=== PATIENT | male | born 1940 ===

== ENCOUNTER 2022-10-01 22:02 | Emergency (ER) | payer MEDICARE ==
[2022-10-01 22:36] VITALS: BP 125/66
[2022-10-01 22:45] VITALS: BP 120/67
[2022-10-01] MEDS ORDERED: ASPIRIN325 MG PO (22:48)
[2022-10-01] MEDS ORDERED: ATORVASTATIN CA40 MG PO (22:48)
[2022-10-01] MEDS ORDERED: MOISTURIZING (22:48)
[2022-10-01] MEDS ORDERED: CLEOCIN300 MG PO (22:49)
[2022-10-01] MEDS ORDERED: MORPHINE SUL15 M2 PO (22:50)
[2022-10-01] MEDS ORDERED: VIGAMOX OD (22:51)
[2022-10-01] MEDS ORDERED: OXYCODONE5 M1 PO (22:51)
[2022-10-01] MEDS ORDERED: TAMSULOSIN0.4 MG PO (22:52)
[2022-10-01] MEDS ORDERED: PRESERVISION AREDS 2 (22:53)
[2022-10-01 23:01] VITALS: BP 121/75
[2022-10-01 23:16] VITALS: BP 109/69
[2022-10-01 23:30] VITALS: BP 115/63
[2022-10-01 23:52] VITALS: BP 115/63
== END 2022-10-01 23:56 | disposition left against medical advice (07) ==
LOC: ED 22:02
DX: R06.6 Hiccough (principal); E78.00 Pure hypercholesterolemia, unspecified; F17.200 Nicotine dependence, unspecified, uncomplicated; Z53.29 Procedure and treatment not carried out because of patient's decision for other reasons; Z98.890 Other specified postprocedural states; R06.02 Shortness of breath

== ENCOUNTER 2023-06-16 07:19 | Emergency (ER) | payer MEDICARE ==
[~2023-06-16] VITALS: Ht 175.3 cm; Wt 66.0 kg
[2023-06-16] VITALS (19 sets, daily range): BP systolic 93–126; BP diastolic 63–98
[~2023-06-16 07:19] MED LIST: ASPIRIN325 MG PO; ATORVASTATIN CA40 MG PO; CLEOCIN300 MG PO; MOISTURIZING; MORPHINE SUL15 M2 PO; OXYCODONE5 M1 PO; PRESERVISION AREDS 2; TAMSULOSIN0.4 MG PO; VIGAMOX OD
[2023-06-16] MEDS ORDERED: LYRICA75 MG PO (07:36)
[2023-06-16] MEDS ORDERED: REFRESH TEARS0.5 % OP (07:38)
[2023-06-16] MEDS ORDERED: ALEVE220 M1 PO (07:39)
== END 2023-06-16 13:27 | disposition home or self-care (01) ==
LOC: ED 07:19
PROC: 2W38X1Z Immobilization of Right Upper Extremity using Splint (ICD-10-PCS; principal; 2023-06-16)
DX: S42.401A Unspecified fracture of lower end of right humerus, initial encounter for closed fracture (principal); F17.210 Nicotine dependence, cigarettes, uncomplicated; V92.09XA Drowning and submersion due to fall off unspecified watercraft, initial encounter

== ENCOUNTER 2024-07-19 15:58 | Observation (INO) | payer MEDICARE ==
[~2024-07-19] VITALS: Ht 152.4 cm; Wt 57.0 kg
[2024-07-19] VITALS (26 sets, daily range): BP systolic 78–139; BP diastolic 28–77
[~2024-07-19 15:58] MED LIST changes: +ALEVE220 M1 PO; +LYRICA75 MG PO; +REFRESH TEARS0.5 % OP
[2024-07-19] MEDS ORDERED: SODIUM CHLORIDE 0.9% 1,000 ML IV ONE (16:15)
[2024-07-19 16:51] LABS: BASO% 0.4 % (0-3); EOS% 1.6 % (0-8); HEMATOCRIT 38.8 % (39.0-50.0); HEMOGLOBIN 12.8 g/dl (14.0-18.0); IMMATURE GRANULOCYTES 0.1 % (0.0-5.0); LYMPH% 20.1 % (15-41); MEAN CELL VOLUME 95.6 fL CALC (80.0-100.0); MEAN CORPUSCULAR HGB 31.5 pG CALC (26.0-32.0); MONO% 9.5 % (2-13); NEUT# 4.74 thou/uL (1.82-7.42); NEUT% 68.3 % (42-76); RED BLOOD COUNT 4.06 mill/uL (4.70-6.10); RED CELL DISTRI WIDTH 13.4 % (11.5-15.5)
[2024-07-19 17:00] LABS: ALBUMIN 3.1 g/dL (3.2-5.0); ALKALINE PHOSPHATASE 53 u/l (38-126); ANION GAP 8 (6-22 (CALC)); BILIRUBIN, TOTAL 0.6 mg/dL (0.2-1.3); BUN 14 mg/dL (8-23); BUN/CREATININE RATIO 14 (12-20 (CALC)); CARBON DIOXIDE 25 mmol/l (22-30); CHLORIDE 112 mmol/l (95-108); CPK 32 u/l (55-170); ESTIMATED GFR 74 ML/MIN (>=90 (CALC)); POTASSIUM 3.8 mmol/l (3.5-5.1); SGOT/AST 21 u/l (19-48); SODIUM 141 mmol/l (137-146); TOTAL PROTEIN 5.6 g/dL (6.3-8.2)
[2024-07-19] MEDS ORDERED: SODIUM CHLORIDE 0.9% 1,000 ML IV PRN (19:55)
[2024-07-19] MEDS ORDERED: MELATONIN 3 MG/TAB PO PRN (19:55)
[2024-07-19] MEDS ORDERED: ONDANSETRON 4 MG/TAB ODT SL PRN (19:55)
[2024-07-19] MEDS ORDERED: ACETAMINOPHEN 325 MG/TAB PO PRN (19:55)
[2024-07-19] MEDS ORDERED: Polyethylene Glycol 3350 17 GM/PKT PO PRN (19:55)
[2024-07-19 20:14] LABS: URINE BILIRUBIN - DIPSTICK Negative (NEGATIVE); URINE BLOOD DIPSTICK Negative (NEGATIVE); URINE COLOR Yellow; URINE GLUCOSE - DIPSTICK Negative (NEGATIVE); URINE KETONE Negative (NEGATIVE); URINE LEUK ESTERASE Negative (NEGATIVE); URINE NITRITE - DIPSTICK Negative (Negative); URINE PROTEIN - DIPSTICK Trace mg/dL (NEG-TRACE); URINE UROBILINOGEN - DIPSTICK 0.2 E.U./dL (0.2)
[2024-07-19] MEDS ORDERED: ENOXAPARIN SODIUM 40 MG/0.4 ML SYR SC SCH (21:00)
[2024-07-20] VITALS (7 sets, daily range): BP systolic 89–144; BP diastolic 47–70
[2024-07-20 05:10] LABS: BASO% 0.6 % (0-3); EOS% 2.2 % (0-8); HEMATOCRIT 38.7 % (39.0-50.0); IMMATURE GRANULOCYTES 0.1 % (0.0-5.0); LYMPH% 33.8 % (15-41); MEAN CELL VOLUME 94.6 fL CALC (80.0-100.0); MEAN CORPUSCULAR HGB 31.8 pG CALC (26.0-32.0); MEAN CORPUSCULAR HGB CONC 33.6 g/dL CAL (32.0-36.0); NEUT# 3.66 thou/uL (1.82-7.42); NEUT% 54.3 % (42-76); RED BLOOD COUNT 4.09 mill/uL (4.70-6.10); RED CELL DISTRI WIDTH 13.8 % (11.5-15.5)
[2024-07-20 05:17] LABS: BILIRUBIN, TOTAL 0.6 mg/dL (0.2-1.3); CREATININE 0.8 mg/dL (0.7-1.3); MAGNESIUM 1.8 mg/dL (1.6-2.3); POTASSIUM 4.4 mmol/l (3.5-5.1); TOTAL PROTEIN 5.5 g/dL (6.3-8.2)
[2024-07-20] MEDS ORDERED: PREGABALIN 75 MG/CAP PO SCH (09:00)
== END 2024-07-20 11:42 | disposition home or self-care (01) ==
LOC: ED 15:58 → ED-I 19:38 → ED 19:48 → MS2 19:49
PROVIDERS: Emergency Medicine; ADMIT Internal Medicine; ATTEND Internal Medicine
DX: R55 Syncope and collapse (principal); R00.1 Bradycardia, unspecified; E78.5 Hyperlipidemia, unspecified; G89.4 Chronic pain syndrome; Z79.891 Long term (current) use of opiate analgesic
CPT/HCPCS: G0378; J1650